=== PATIENT | female | born 1955 ===

== ENCOUNTER 2017-01-07 07:39 | Day surgery (SDC) | payer OTHER ==
[2017-01-07 08:02] VITALS: BMI 26.0
[2017-01-07] MEDS ORDERED: Propofol 10 mg/ml Inj (20 ML) ONE ×2 (09:19→09:27)
[2017-01-07 12:30] VITALS: TEMP 96.9
[2017-01-07 12:32] VITALS: O2SAT 99
[2017-01-07 12:39] VITALS: BP 137/81; PULSE 79; RESP 16
== END 2017-01-07 10:50 | disposition home or self-care (01) ==
LOC: C.ENDO 07:39
PROVIDERS: ATTEND Internal Medicine Gastroenterology
DX: K64.8 Other hemorrhoids (principal)
CPT/HCPCS: 45378; J2704

== ENCOUNTER 2018-11-24 11:33 | Outpatient (CLI) | payer MEDICAID | END 2018-11-24 11:34 | disposition home or self-care (01) | LOC: C.RADH 11:33 | DX: M54.9 Dorsalgia, unspecified (principal) ==